=== PATIENT | female | born 1960 | race Caucasian/White ===

== ENCOUNTER 2019-03-20 15:19 | Emergency (ER) | payer SELFPAY ==
[~2019-03-20] VITALS: Ht 152.4 cm; Wt 76.2 kg
[2019-03-20 15:31] VITALS: BP 151/72; Ht 152.4 cm; Wt 76.2 kg
== END 2019-03-20 17:32 | disposition home or self-care (01) ==
LOC: ED 15:19
DX: S83.92XA Sprain of unspecified site of left knee, initial encounter (principal); I10 Essential (primary) hypertension; E11.9 Type 2 diabetes mellitus without complications; W18.39XA Other fall on same level, initial encounter; Y93.89 Activity, other specified; Y92.89 Other specified places as the place of occurrence of the external cause; Y99.8 Other external cause status

== ENCOUNTER 2019-05-12 14:54 | Emergency (ER) | payer MEDICAID ==
[~2019-05-12] VITALS: Ht 152.4 cm; Wt 71.7 kg
[2019-05-12 15:19] VITALS: Ht 152.4 cm; Wt 71.7 kg
[2019-05-12 17:59] VITALS: BP 142/69
== END 2019-05-12 17:59 | disposition home or self-care (01) ==
LOC: ED 14:54
DX: S83.92XA Sprain of unspecified site of left knee, initial encounter (principal); M65.262 Calcific tendinitis, left lower leg; X58.XXXA Exposure to other specified factors, initial encounter; Y93.89 Activity, other specified; Y92.89 Other specified places as the place of occurrence of the external cause; Y99.8 Other external cause status
CPT/HCPCS: J1885